=== PATIENT | female | born 1970 | race Caucasian/White ===

== ENCOUNTER 2022-09-18 07:13 | Outpatient (CLI) | payer OTHER | END 2022-09-18 07:14 | disposition home or self-care (01) | LOC: LAB.N 07:13 | PROVIDERS: ATTEND Nurse Practitioner | DX: Z53.9 Procedure and treatment not carried out, unspecified reason (principal) ==

== ENCOUNTER 2022-09-19 07:20 | Outpatient (CLI) | payer OTHER ==
[2022-09-19 11:47] LABS: BASOPHILS # (AUTO) 0.1 10^3/uL (0.0-0.1); EOSINOPHILS # (AUTO) 0.2 10^3/uL (0.0-0.7); EOSINOPHILS % (AUTO) 3.7 %; HCT - HEMATOCRIT 37.9 % (37.0-47.0); HGB - HEMOGLOBIN 12.6 g/dL (12.0-16.0); LYMPHOCYTES # (AUTO) 1.7 10^3/uL (1.5-3.5); LYMPHOCYTES % (AUTO) 35.5 %; MEAN CORPUSCULAR HEMOGLOBIN 30.8 pg (27.0-31.0); MEAN CORPUSCULAR HGB CONC 33.2 g/dL (32.0-36.0); MEAN CORPUSCULAR VOLUME 92.7 fL (81.0-99.0); MEAN PLATELET VOLUME 9.6 fL (7.9-10.8); MONOCYTES # (AUTO) 0.3 10^3/uL (0.0-1.0); MONOCYTES % (AUTO) 5.4 %; NEUTROPHILS # (AUTO) 2.6 10^3/uL (1.5-6.6); NEUTROPHILS % (AUTO) 54.2 %; PLT - PLATELET COUNT 242 10^3/uL (130-450); RED BLOOD COUNT 4.09 10^6/uL (4.20-5.40); RED CELL DISTRIBUTION WIDTH 12.8 % (12.0-15.0); WHITE BLOOD COUNT 4.8 x10^3/uL (4.8-10.8)
[2022-09-19 12:30] LABS: RHEUMATOID FACTOR NEGATIVE (Negative)
[2022-09-19 12:59] LABS: ALBUMIN 4.3 g/dL (3.2-5.5); ALBUMIN/GLOBULIN RATIO 1.5 (1.0-2.2); ALKALINE PHOSPHATASE 92 IU/L (42-121); ALT ALANINE AMINOTRANSFERASE 18 IU/L (10-60); AST ASPARTATE AMINOTRANSFERASE 15 IU/L (10-42); BILIRUBIN,TOTAL 0.5 mg/dL (0.2-1.0); BUN - BLOOD UREA NITROGEN 11 mg/dL (6-20); CALCIUM 9.6 mg/dL (8.5-10.3); CARBON DIOXIDE - CO2 28 mmol/L (21-32); CHLORIDE 106 mmol/L (101-111); CHOL/HDL RATIO 3.8 (<4.4); CHOLESTEROL 246 mg/dL; CREATININE 0.7 mg/dL (0.6-1.3); CRP - C-REACTIVE PROTEIN 0.9 mg/dL (<0.5); GFR - MDRD 88 (>89); GLUCOSE 83 mg/dL (74-104); HDL CHOLESTEROL 64 mg/dL; LDL CHOLESTEROL,CALCULATED 145 mg/dL; LDL/HDL RATIO 2.3 (<4.4); POTASSIUM 4.1 mmol/L (3.5-4.5); SODIUM 141 mmol/L (135-145); TOTAL PROTEIN 7.2 g/dL (6.4-8.9); TRIGLYCERIDES 185 mg/dL (48-352); URIC ACID 7.4 mg/dL (2.3-6.6); VLDL CHOLESTEROL 37 mg/dL
[2022-09-20 16:08] LABS: ANTI-DNA (DS) AB QN 5 IU/mL (0-9)
[2022-09-20 20:08] LABS: CYCLIC CITRULLINATED PEP IGG/A 1 units (0-19)
[2022-09-22 16:08] LABS: ANTINUCLEAR ANTIBODIES IFA Negative (.)
== END 2022-09-19 07:21 | disposition home or self-care (01) ==
LOC: LAB.N 07:20
PROVIDERS: ATTEND Nurse Practitioner
DX: Z00.00 Encounter for general adult medical examination without abnormal findings (principal); Z13.220 Encounter for screening for lipoid disorders; E03.9 Hypothyroidism, unspecified; M19.90 Unspecified osteoarthritis, unspecified site; R22.30 Localized swelling, mass and lump, unspecified upper limb
CPT/HCPCS: 36415; 80053; 80061; 83721; 84439; 84443; 84550; 85025; 85651; 86038; 86140; 86200; 86225; 86430